=== PATIENT | male | born 1960 | race Caucasian/White ===

== ENCOUNTER → 2023-06-15 | Outpatient (REF) | payer OTHER ==
[~2023-06-15] MED LIST: ATEN50TA2 PO; CELE1CAP4 PO; FISHCAP; GARLPOW PO; GLUC250C5; HYDROCHLOROTHIZIDE PO; LISIPOW; LYRI50CA PO; METFORMIN PO; MULTLIQ7 PO; NIACPOW39 PO; OMEPPOW18 PO; PERC7.5T12 PO; PRAVACHOL PO; TYLE325T5 PO; VIAGRA PO; VICO5TA FT; VITAMIN C PO; VITAMIN D PO
== END ==
LOC: M LAB REF 13:05
PROVIDERS: ATTEND Orthopaedic Surgery
DX: L02.31 Cutaneous abscess of buttock (principal)